=== PATIENT | female | born 2000 | race Two or more races ===

== ENCOUNTER 2025-04-20 18:43 | Emergency (ER) | payer MEDICAID, SELFPAY ==
--- NOTE | 2025-04-20 18:49 | PD.EDDENTL ---
ED Dental RME/HPI General Chief complaint: Dental/Oral/Throat Stated complaint: ABSCESS IN MOUTH Time Seen by Provider: 04/20/25 18:45 Arrival date/time: 04/20/25 18:43 Limitations: no limitations RME / HPI RME / HPI Narrative: 24-year-old female with a history of diabetes here today with atraumatic left upper dental pain. She has mild swelling. Denies any fevers or chills. She has no drooling or trismus. She took Tylenol ibuprofen but her pain has persisted. She has no other acute complaints. Related Data Previous Rx's ?Medication ?Instructions ?Recorded Acetaminophen With Codeine 2 tab PO QID ##18 05/17/13 (Tylenol W-Codeine #3 Tablet) penicillin V potassium 500 mg 500 mg PO QID ##40 05/17/13 tablet amoxicillin 875 mg-potassium 1 tab PO BID #14 tabs 04/20/25 clavulanate 125 mg tablet Allergies Allergy/AdvReac Type Severity Reaction Status Date / Time No Known Allergies Allergy Unverified 04/20/25 18:50 Review of Systems Review of Systems Systems Reviewed: All systems reviewed, normal except as documented ED Exam General Limitations: Present no limitations General appearance: Present alert and in no apparent distress Head Head exam: Present atraumatic Eye Eye exam: Present normal appearance, PERRL and EOMI ENT ENT exam: Present normal exam, normal oropharynx, mucous membranes moist and other (Mild, diffuse, erythema, at the left upper gumline. No fluctuance or discharge is present. Few dental caries are present.) Neck Neck exam: Present normal inspection, full ROM and trachea midline Chest Chest inspection: Present normal inspection and symmetric chest wall rise Respiratory Respiratory exam: Present normal lung sounds bilaterally Cardiovascular Cardiovascular exam: Present regular rate, normal rhythm and normal heart sounds Abdominal Exam Abdominal exam: Present soft and normal bowel sounds Extremities Exam Extremities exam: Present normal inspection and full ROM Back Exam Back exam: Present normal inspection and full ROM Neurological Exam Neurological exam: Present alert, oriented X3 and CN II-XII intact Psychiatric Psychiatric exam: Present normal affect and normal mood Skin Skin exam: Present warm, dry, intact and normal color Course Quality Measures none Orders Category Date Time Status Amoxicillin/Pot Clav 875 [Augmentin 875] Med 04/20/25 18:48 Once 1 tab PO X1 ONE HYDROcodone*/APAP 5/325 [[place] 5/325] Med 04/20/25 18:48 Once 1 tab PO X1 ONE Vital Signs Vital signs: Vital Signs Temperature 98.5 F 04/20/25 18:52 Pulse Rate 86 04/20/25 18:52 Respiratory Rate 18 04/20/25 18:52 Blood Pressure 121/78 04/20/25 18:52 Pulse Oximetry (%) 99 04/20/25 18:52 Oxygen Delivery Method Room Air 04/20/25 18:52 Dental / Oral MDM Narrative MDM Narrative:: 24-year-old female is here today with 8 [place] dental pain that started this afternoon. She was given a dose of Augmentin and [place] here. She is advised to continue ibuprofen and Tylenol at home. She will be discharged with a prescription of Augmentin. She states she will try to go to the walk-in dentistry tomorrow for further care. Return precautions were discussed. She agrees return today for any worsening or emergent changes. Patient data External records reviewed:: Other (specify) Clinical information provided by:: patient Social determinants that could affect healthcare access:: none Patient has the following chronic illnesses:: Diabetes How is presenting disease/condition affected by chronic disease/condition?: exacerbated by Evaluation data The following diagnostics were reviewed and interpreted by me:: lab results Lab and/or radiology exams considered but not ordered:: n/a Interpretation Summary: Bedside glucose is 113 Medications / Prescriptions Medications or Prescriptions considered but not ordered:: n/a Medication administrations:: Medication Administration History Discontinued Medications Hydrocodone Bitart/Acetaminophen (Hydrocodone/Apap 5/325 Tablet) 1 tab PO X1 ONE Stop: 04/20/25 18:49 Amoxicillin/Clavulanate Potassium (Amoxicillin/Pot Clav 875 Tablet) 1 tab PO X1 ONE Stop: 04/20/25 18:49 See above Consultations Consultation(s) initiated? (list below): No Diagnosis Dental Differential Diagnosis: gingival abscess, dental caries, toothache, dental abscess and fracture of tooth Most likely diagnosis given after review of the tests above:: Dental infection Admission Indicated Admission indicated?: not indicated Admission Request Was there a request for admission?: No Disposition Plan Disposition Plan: Discharge Discharge Attestation Discharge Attestation: The patient and all family members were given an opportunity to ask questions and understood the discharge instructions. Discharge instructions specifically effects, indications for sooner follow up or return to the emergency department, and the expected course of current diagnosis. Patient condition: Stable Discharge Plan Plan Patient Disposition: HOME (Self Care) Patient condition on transfer: Stable Prescriptions/Referrals Prescriptions/Med Rec: New amoxicillin-pot clavulanate 875-125 mg tablet 1 tab PO BID Qty: 14 0RF No Action Acetaminophen With Codeine (Tylenol W-Codeine #3 Tablet) 1 TAB tablet 2 tab PO QID Qty: 18 0RF penicillin V potassium 500 MG tablet 500 mg PO QID Qty: 40 0RF Problem List Clinical Impression: Dental caries, Dental infection Patient/Caregiver Discharge Instructions Education Materials: ED Dental Cavity, ED Dental Abscess Additional Instructions: Continue Tylenol and ibuprofen for pain control. Use the provided antibiotic as prescribed. Follow-up with dentistry as soon as possible. Return as needed for any worsening or emergent changes. Print Language: Faroese Stand Alone Forms: [facility] Award Info., Patient Portal Info Letter
[2025-04-20 18:52] VITALS: BP 121/78; PULSE 86; RESP 18; TEMP 36.9; O2SAT 99
[2025-04-20] MEDS: HYDROcodone/APAP 5/325 TABLET 1 TAB PO (18:56)
[2025-04-20] MEDS: AMOXICILLIN/POT CLAV 875 TABLET 1 TAB PO (18:56)
== END 2025-04-20 19:01 | disposition home or self-care (01) ==
LOC: SERX 19:04
PROVIDERS: Emergency Provider Emergency Medicine; PCP Family Medicine
DX: K02.9 Dental caries, unspecified (principal); K04.7 Periapical abscess without sinus; E11.9 Type 2 diabetes mellitus without complications
CPT/HCPCS: 99283; A9270